=== PATIENT | male | born 1960 | race Caucasian/White ===

== ENCOUNTER 2021-08-03 18:42 | Inpatient (IN) | payer OTHER ==
[~2021-08-03] VITALS: Ht 177.8 cm; Wt 81.2 kg
--- NOTE | 2021-08-03 18:45 | NUR ---
CAME IN FOR MID CHEST TIGHTNESS/PAIN NON-RADIATING SINCE THIS MORNING. TO ER BED 4, HOOKED TO BUSINESS ENGLISH INSTRUCTOR, CHANGED TO HOSP GOWN, WARM BLANKLET PROVIDED, PATIENT AAO x 4, BREATHING EVEN AND UNLABORED. DR ARDON AT BEDSIDE
[2021-08-03 19:20] LABS: CALCIUM, SERUM 8.8 mg/dL (8.5-10.1); CARBON DIOXIDE 29 mmol/L (21-32); CHLORIDE 102 mmol/L (98-107); CREATININE 1.1 mg/dL (0.6-1.3); GLUCOSE 308 mg/dL (74-106); POTASSIUM 3.5 mmol/L (3.5-5.1); SODIUM SERUM 137 mmol/L (136-145); UREA NITROGEN, BLOOD 12 mg/dL (7-18)
--- NOTE | 2021-08-03 19:21 | NUR ---
REPORT GIVEN TO WILBUR BARROSO FOR MEGAN
[2021-08-03] MEDS ORDERED: METOPROLOL TARTRATE INJ 5 MG/5 ML AMPUL ONE (19:25)
[2021-08-03] MEDS ORDERED: ASPIRIN 81 MG TAB.CHEW ONE (19:26)
[2021-08-03] MEDS ORDERED: METOPROLOL TARTRATE INJ 5 MG/5 ML AMPUL IV ONE (19:30)
[2021-08-03] MEDS ORDERED: ASPIRIN 81 MG TAB.CHEW PO ONE (19:30)
--- NOTE | 2021-08-03 19:45 | NUR ---
COVID TEST SWABBED AND SENT TO LAB
[2021-08-03 19:59] LABS: BASOPHILS # (AUTO) 0.1 K/uL (0.0-0.2); BASOPHILS % (AUTO) 0.7 % (0.0-2.0); EOSINOPHILS % (AUTO) 1.6 % (0.0-6.0); HEMATOCRIT 53 % (39-51); HEMOGLOBIN 17.7 g/dL (13.5-17.5); LYMPHOCYTES # (AUTO) 2.3 K/uL (0.8-4.8); LYMPHOCYTES % (AUTO) 26.4 % (20.0-44.0); MEAN CORPUSCULAR HGB CONC 33 g/dl (31.0-36.0); MEAN CORPUSCULAR VOLUME 93 fL (80-96); MONOCYTES # (AUTO) 0.6 K/uL (0.1-1.30); MONOCYTES % (AUTO) 7.1 % (2.0-12.0); NEUTROPHILS # (AUTO) 5.6 K/uL (1.8-8.9); NEUTROPHILS % (AUTO) 64.2 % (43.0-81.0); PLATELET COUNT (AUTO) 294 K/uL (150-450); RED BLOOD CELL COUNT(AUTO) 5.74 MIL/uL (4.5-6.0); WHITE BLOOD COUNT (AUTO) 8.8 K/uL (4.3-11.0)
[2021-08-03] MEDS ORDERED: ENOXAPARIN SODIUM 80 MG/0.8 ML DISP.SYRIN SQ ONE ×2 (20:00→20:13)
--- NOTE | 2021-08-03 20:11 | NUR ---
[facility] PAGED PER DR ARDON
[2021-08-03] MEDS ORDERED: ONDANSETRON HCL/PF 4 MG/2 ML VIAL ONE (20:14)
[2021-08-03] MEDS ORDERED: MORPHINE SULFATE INJ 4 MG/ML DISP.SYRIN ONE (20:14)
[2021-08-03] MEDS ORDERED: DEXTROSE 50%-WATER 50 ML DISP.SYRIN IV PRN (20:30)
[2021-08-03] MEDS ORDERED: MORPHINE SULFATE INJ 2 MG/ML DISP.SYRIN IV ONE (20:30)
[2021-08-03] MEDS ORDERED: LABETALOL 20 MG/4 ML VIAL IV PRN (20:30)
[2021-08-03] MEDS ORDERED: ONDANSETRON HCL/PF 4 MG/2 ML VIAL IV ONE (20:30)
[2021-08-03] MEDS ORDERED: ONDANSETRON HCL/PF 4 MG/2 ML VIAL IVP PRN (20:30)
[2021-08-03 21:24] LABS: EOSINOPHILS % (MANUAL) 1 % (0-4); LYMPHOCYTES % (MANUAL) 30 % (16-48); MONOCYTES % (MANUAL) 4 % (0-11.0); NEUTROPHILS % (MANUAL) 65 (42-76)
[2021-08-03] MEDS: BLOOD SUGAR DIAGNOSTIC 1 EACH STRIP IN SCH (21:33)
[2021-08-03] MEDS ORDERED: INSULIN REGULAR, HUMAN 100 UNIT/ML 10 ML VIAL ONE (21:39)
[2021-08-03] MEDS: INSULIN REGULAR, HUMAN 100 UNIT/ML 3 ML VIAL SQ PRN (21:45)
[2021-08-03] MEDS ORDERED: ATORVASTATIN 10 MG TABLET ONE (22:50)
[2021-08-03] MEDS ORDERED: METOPROLOL TARTRATE 50 MG TABLET ONE (22:50)
[2021-08-03] MEDS: ATORVASTATIN 10 MG TABLET PO SCH (22:54)
[2021-08-04] MEDS ORDERED: MORPHINE SULFATE INJ 2 MG/ML DISP.SYRIN ONE ×2 (00:25→04:37)
[2021-08-04] MEDS: MORPHINE SULFATE INJ 2 MG/ML DISP.SYRIN IV PRN ×4 (00:29→16:59)
[2021-08-04] MEDS: METOPROLOL TARTRATE 50 MG TABLET PO SCH ×4 (06:00→17:18)
[2021-08-04 06:12] LABS: BASOPHILS # (AUTO) 0.1 K/uL (0.0-0.2); BASOPHILS % (AUTO) 0.8 % (0.0-2.0); EOSINOPHILS % (AUTO) 1.7 % (0.0-6.0); HEMATOCRIT 53 % (39-51); HEMOGLOBIN 17.9 g/dL (13.5-17.5); LYMPHOCYTES % (AUTO) 25.6 % (20.0-44.0); MEAN CORPUSCULAR HGB CONC 34 g/dl (31.0-36.0); MEAN CORPUSCULAR VOLUME 91 fL (80-96); MONOCYTES # (AUTO) 0.9 K/uL (0.1-1.30); MONOCYTES % (AUTO) 7.7 % (2.0-12.0); NEUTROPHILS # (AUTO) 7.6 K/uL (1.8-8.9); NEUTROPHILS % (AUTO) 64.2 % (43.0-81.0); PLATELET COUNT (AUTO) 287 K/uL (150-450); RED BLOOD CELL COUNT(AUTO) 5.83 MIL/uL (4.5-6.0); WHITE BLOOD COUNT (AUTO) 11.9 K/uL (4.3-11.0)
[2021-08-04 07:06] LABS: ALBUMIN 3.6 g/dL (3.4-5.0); BILIRUBIN,TOTAL 0.7 mg/dL (0.2-1.0); CALCIUM, SERUM 8.5 mg/dL (8.5-10.1); MAGNESIUM 1.8 mg/dL (1.8-2.4); PHOSPHORUS 4.6 mg/dL (2.5-4.9); TOTAL PROTEIN, SERUM 6.9 g/dL (6.4-8.2)
[2021-08-04 07:13] LABS: POTASSIUM 3.9 mmol/L (3.5-5.1)
[2021-08-04] MEDS: BLOOD SUGAR DIAGNOSTIC 1 EACH STRIP IN SCH ×4 (07:41→21:35)
--- NOTE | 2021-08-04 07:44 | NUR ---
PER RN HELPER METAL HANGING PT WILL BE GOING TO 314 BED 1
[2021-08-04] MEDS: INSULIN REGULAR, HUMAN 100 UNIT/ML 3 ML VIAL SQ PRN ×4 (07:45→21:38)
--- NOTE | 2021-08-04 08:10 | NUR ---
PATIENT TRANSFERRED UNDER ACLS.
--- NOTE | 2021-08-04 08:11 | NUR ---
CALLED FOR REPORT. WAS LEFT ON HOLD.
--- NOTE | 2021-08-04 08:28 | NUR ---
REPORT GTIVEN TO MIKI
--- NOTE | 2021-08-04 09:00 | NUR ---
RN ADMITTING NOTES ADMITTED THIS 61 Y/O MALE PATIENT FROM ER, TRANSPORTED VIA WHEELCHAIR BY ER NURSE. WITH ADMITTING DIAGNOSIS OF NSTEMI/CHEST PAIN. PATIENT IS ALERT, A/O X4, VERBALLY RESPONSIVE, NO SIGNS OF ACUTE DISTRESS NOTED. PATIENT NOTED WITH EPISODES OF AGITATION/ANXIETY, AMBULATING IN THE HALLWAY, BECAUSE HE WANTED HIS TO GO UPSTAIRS RIGHT AWAY ALTHOUGH VISITING HOURS HASN'T STARTED YET. REFUSED TO BE INTERVIEWED AT THIS TIME AND REFUSED VITAL SIGNS TO BE TAKEN. ASKED FOR PAIN MEDICATIONS, MORPHINE 2 MG GIVEN IVP @0848. CN SPOKE WITH PATIENT AND EXPLAINED HOSPITAL POLICIES AND PROCEDURES. PATIENT CALMED DOWN. WILL TRY TO INTERVIEW PATIENT LATER. WILL CONTINUE TO MONITOR PATIENT.
[2021-08-04] MEDS: ATORVASTATIN 10 MG TABLET PO SCH (09:42)
[2021-08-04] MEDS: ENOXAPARIN SODIUM 40 MG/0.4 ML DISP.SYRIN SQ SCH ×2 (09:46→21:00)
[2021-08-04 10:00] VITALS: BP 105/72
--- NOTE | 2021-08-04 10:30 | NUR ---
RN NOTES PATIENT MORE CALM NOW. ALREADY VISITED BY DR. DEL TORO AND ASKED FOR ANTI-ANXIETY MEDICATION. PATIENT ADMISSION DONE. REFUSED BODY CHECK. INSPITE EXPLANATION OF IMPORTANCE. AT BEDSIDE. TELEMONITOR PLACED WITH CURRENT READING SHOWING NSR HR @ 72. VITAL SIGNS TAKEN. SAFETY MEASURES IN PLACE, BED IN LOWEST LOCKED POSITION, SR UP, CALL LIGHT PLACED WITHIN EASY REACH.
[2021-08-04] MEDS: LORAZEPAM 1 MG TABLET PO PRN (11:41)
[2021-08-04 16:00] VITALS: BP 102/64
--- NOTE | 2021-08-04 18:56 | NUR ---
M48 M60 ARMOR CREWMAN CLOSING NOTES PATIENT RESTING IN BED WITH . NO SIGNS OF ACUTE DISTRESS. ON ROOM AIR TOLERATING WELL. NO SIGNS OF ACUTE DISTRESS NOTED.MEDICATED FOR PAIN NEEDED. IV ACCESS ON LEFT ANTECUBITAL INTACT AND PATENT. SAFETY MEASURES MAINTAINED. WILL ENDORSE TO NEXT SHIFT.
--- NOTE | 2021-08-04 19:45 | NUR ---
SENIOR CONSTRUCTION PROJECT MANAGER OPENING NOTES PATIENT RESTING IN BED WITH . NO SIGNS OF ACUTE DISTRESS. ON ROOM AIR TOLERATING WELL. NO SIGNS OF ACUTE DISTRESS NOTED.MEDICATED FOR PAIN NEEDED. IV ACCESS ON LEFT ANTECUBITAL INTACT AND PATENT. SAFETY MEASURES MAINTAINED. WILL CONTINUE TO MONITOR.
[2021-08-04 20:00] VITALS: BP 98/60
--- NOTE | 2021-08-04 21:03 | NUR ---
APPLICATIONS ENGINEER MANUFACTURING NOTES HOLD LOVENOX DOSE PT TO HAVE SURGERY IN THE MORNING.
--- NOTE | 2021-08-05 02:30 | NUR ---
RIB STIFFENER AND HEEL DIPPER NOTES PT KEEPS TAKING OFF LEAD RISK AND BENEFITS EXPLAINED X3 PT STATED HE UNDERSTOOD BUT TOOK OFF LEADS OVER AND OVER AGAIN X3 IN THE LAST HOUR. WILL CONTINUE TO MONITOR.
[2021-08-05 04:00] VITALS: BP 105/76
[2021-08-05] MEDS: MORPHINE SULFATE INJ 2 MG/ML DISP.SYRIN IV PRN ×5 (04:00→21:45)
--- NOTE | 2021-08-05 04:03 | NUR ---
J2EE PROGRAMMER NOTES PRN MORPHINE GIVEN FOR PAIN AND TOLERATED WELL. WILL CONTINUE TO MONITOR.
[2021-08-05 04:09] VITALS: BP 105/76
--- NOTE | 2021-08-05 04:35 | NUR ---
BAND SAW OPERATOR NOTES PT CONTINUES TO TAKE OFF SOFIE MULTIPLE TIMES X4 IN THE PAST HOUR. RISK AND BENEFITS EXPLAINED X3 PT STATES HE UNDERSTANDS HOWEVER TAKES THEM OFF OVER AND OVER AGAIN. WILL CONTINUE TO MONITOR.
[2021-08-05] MEDS: METOPROLOL TARTRATE 50 MG TABLET PO SCH ×4 (06:00→17:45)
[2021-08-05] MEDS: INSULIN REGULAR, HUMAN 100 UNIT/ML 3 ML VIAL SQ PRN ×4 (06:34→21:54)
[2021-08-05] MEDS: BLOOD SUGAR DIAGNOSTIC 1 EACH STRIP IN SCH ×4 (06:34→21:54)
--- NOTE | 2021-08-05 06:41 | NUR ---
VACCINE SPECIALIST CLOSING NOTES PATIENT RESTING IN BED WITH . NO SIGNS OF ACUTE DISTRESS. ON ROOM AIR TOLERATING WELL. NO SIGNS OF ACUTE DISTRESS NOTED.MEDICATED FOR PAIN NEEDED. IV ACCESS ON LEFT ANTECUBITAL INTACT AND PATENT. SAFETY MEASURES MAINTAINED. WILL ENDORSE CARE TO DAY SHIFT NURSE.
[2021-08-05 07:39] LABS: BASOPHILS # (AUTO) 0.1 K/uL (0.0-0.2); BASOPHILS % (AUTO) 1.1 % (0.0-2.0); EOSINOPHILS % (AUTO) 1.6 % (0.0-6.0); HEMATOCRIT 50 % (39-51); HEMOGLOBIN 16.7 g/dL (13.5-17.5); LYMPHOCYTES # (AUTO) 3.1 K/uL (0.8-4.8); LYMPHOCYTES % (AUTO) 33.4 % (20.0-44.0); MEAN CORPUSCULAR HGB CONC 34 g/dl (31.0-36.0); MEAN CORPUSCULAR VOLUME 91 fL (80-96); MONOCYTES # (AUTO) 0.7 K/uL (0.1-1.30); MONOCYTES % (AUTO) 8.1 % (2.0-12.0); NEUTROPHILS # (AUTO) 5.1 K/uL (1.8-8.9); NEUTROPHILS % (AUTO) 55.8 % (43.0-81.0); PLATELET COUNT (AUTO) 246 K/uL (150-450); RED BLOOD CELL COUNT(AUTO) 5.43 MIL/uL (4.5-6.0); WHITE BLOOD COUNT (AUTO) 9.2 K/uL (4.3-11.0)
--- NOTE | 2021-08-05 07:43 | NUR ---
WHARF TENDER HEAD OPENING NOTES PT RESTING ON BED WITH AT HIS SIDE. NO SIGNS OF ACUTE DISTRESS. ON ROOM AIR TOLERATING WELL. NO SIGNS OF ACUTE DISTRESS NOTED. C/O PAIN- MEDICATED FOR PAIN NEEDED. AWAITING CATH AT 4 PM IV ACCESS ON LEFT ANTECUBITAL #20 G INTACT AND PATENT. SAFETY MEASURES MAINTAINED. WILL CONTINUE TO MONITOR/ ASSIST
[2021-08-05 07:56] VITALS: BP 123/80
[2021-08-05 08:03] LABS: ALANINE AMINOTRANSFERASE 38 U/L (12-78); ALBUMIN 3.3 g/dL (3.4-5.0); ALKALINE PHOSPHATASE 68 U/L (46-116); ASPARTATE AMINOTRANSFERASE 87 U/L (15-37); BILIRUBIN,TOTAL 0.8 mg/dL (0.2-1.0); CALCIUM, SERUM 8.7 mg/dL (8.5-10.1); CARBON DIOXIDE 27 mmol/L (21-32); CHLORIDE 105 mmol/L (98-107); GLUCOSE 210 mg/dL (74-106); MAGNESIUM 1.8 mg/dL (1.8-2.4); PHOSPHORUS 3.9 mg/dL (2.5-4.9); POTASSIUM 4.2 mmol/L (3.5-5.1); SODIUM SERUM 138 mmol/L (136-145); TOTAL PROTEIN, SERUM 6.7 g/dL (6.4-8.2); UREA NITROGEN, BLOOD 17 mg/dL (7-18)
[2021-08-05] MEDS: ATORVASTATIN 10 MG TABLET PO SCH (08:47)
[2021-08-05] MEDS: ENOXAPARIN SODIUM 40 MG/0.4 ML DISP.SYRIN SQ SCH ×2 (08:48→21:24)
--- NOTE | 2021-08-05 09:15 | NUR ---
RN NOTE- TROP - > 25,000 DR GIBBS NOTIFIED / AWARE
[2021-08-05] MEDS: ACETAMINOPHEN 325 MG TABLET PO PRN (09:30)
--- NOTE | 2021-08-05 09:31 | NUR ---
RN NOTE- C/O HEADACHE/ TYLENOL 650MG GIVEN W SIP WATER. NPO STATUS
[2021-08-05 12:16] VITALS: BP 131/63
--- NOTE | 2021-08-05 15:30 | NUR ---
RN NOTE-PT TO SENIOR ABAP DEVELOPER FOR PROCEDURE
[2021-08-05] MEDS ORDERED: IV NS 0.9% 1,000 ML ONE (15:44)
[2021-08-05] MEDS ORDERED: IODIXANOL 150 ML IV ONE (15:44)
[2021-08-05] MEDS ORDERED: IV SET PRIMARY PUMP SET 1 EA INFUS.SET MC ONE (15:44)
[2021-08-05] MEDS ORDERED: LIDOCAINE HCL/PF 1% 30 ML SDV ONE (15:45)
[2021-08-05] MEDS ORDERED: NITROGLYCERIN IN 5 % DEXTROSE 250 ML IV ONE (16:19)
[2021-08-05] MEDS ORDERED: FENTANYL PF 100MCG/2ML AMPUL ONE (16:20)
[2021-08-05] MEDS ORDERED: MIDAZOLAM HCL 2 MG/2ML VIAL ONE (16:20)
[2021-08-05 16:41] VITALS: BP 118/54
--- NOTE | 2021-08-05 17:00 | NUR ---
RN NOTE- PT BACK FROM MANAGER ORGANIZATIONAL. ORDERS GIVEN AND COMPLIED WITH. PT STABLE VS , [id number]
--- NOTE | 2021-08-05 18:00 | NUR ---
RN NOTE- TR BAND - 3ML AIR REMOVED. NO SIGNS OF BLEEDING. BP- 136/72, HR- 80
--- NOTE | 2021-08-05 18:15 | NUR ---
RN NOTE- 3 ML AIR REMOVED FROM TR BAND. NO BLEEDING PRESENT
--- NOTE | 2021-08-05 18:30 | NUR ---
RN NOTE- 3ML AIR REMOVED FROM TR BAND. NO BLEEDING NOTED
--- NOTE | 2021-08-05 18:45 | NUR ---
RN NOTE- 3 ML AIR REMOVED FROM TR BAND.NO BLEEDING NOTED
--- NOTE | 2021-08-05 19:00 | NUR ---
RN NOTE- 3ML AIR REMOVED. NO BLEEDING NOTED. TR BAND REMOVED. SITE COVERED W DRESSING
--- NOTE | 2021-08-05 19:50 | NUR ---
BIOINFORMATICS DEVELOPER OPENING NOTE PATIENT AWAKE IN BED, ALERT/ORIENTED X 4, PT ABLE TO MAKE NEEDS KNOWN. PT STABLE ON RA, NO S/S OF DISTRESS OR SOB NOTED, BREATHING EVEN AND UNLABORED. PT DENIES CHEST PAIN AT THIS TIME. IV ACCESS ON LEFT AC #18G INTACT AND FLUSHING WELL, SALINE LOCKED. PATIENT REFUSING PLACEMENT OF TELE MONITOR DESPITE EXPLANATION OF RISKS AND BENEFITS, CONTINUES TO REMOVE LEADS. SAFETY MEASURES IN PLACE: CALL LIGHT WITHIN REACH, SIDE RAILS UP X 2, BED LOCKED IN LOW POSITION. WILL CONTINUE TO MONITOR PATIENT
[2021-08-05 20:00] VITALS: BP 120/81
[2021-08-05] MEDS: LORAZEPAM 1 MG TABLET PO PRN (20:34)
--- NOTE | 2021-08-05 20:36 | NUR ---
RN NOTE PATIENT FEELING ANXIOUS, REQUESTED ATIVAN, MEDICATION GIVEN ORDERED, WILL CONTINUE TO MONITOR PATIENT
--- NOTE | 2021-08-05 22:10 | NUR ---
RN NOTE ASKED PATIENT IF WE CAN PLACE HEART MONITOR ON HIM, EXPLAINED RISKS AND BENEFITS, PT STILL ADAMANT ABOUT REFUSING HEART MONITOR
[2021-08-06] VITALS: BP 132/87
[2021-08-06 00:24] VITALS: BP 132/87
[2021-08-06] MEDS: METOPROLOL TARTRATE 50 MG TABLET PO SCH ×3 (00:24→12:00)
[2021-08-06] MEDS: MAGNESIUM HYDROXIDE 30 ML UDC PO PRN ×2 (01:33→09:18)
[2021-08-06] MEDS: ACETAMINOPHEN 325 MG TABLET PO PRN (01:34)
--- NOTE | 2021-08-06 01:37 | NUR ---
RN NOTE PATIENT COMPLAINING OF CONSTIPATION AND ABDOMINAL PAIN, MILK OF MAGNESIA AND TYLENOL 650 MG PO GIVEN ORDERED. WILL CONTINUE TO MONITOR PATIENT
[2021-08-06] MEDS: MORPHINE SULFATE INJ 2 MG/ML DISP.SYRIN IV PRN ×2 (01:46→09:06)
--- NOTE | 2021-08-06 01:50 | NUR ---
RN NOTE PATIENT INSISTING THAT HE HAS 8/10 ABDOMINAL, LEFT SHOULDER, GENERALIZED PAIN AND THAT "TYLENOL WON'T HELP". PT FACIAL GRIMACING, ANXIOUS, RESTLESS. PRN MORPHINE 2 MG IV Q4H GIVEN ORDERED, WILL CONTINUE TO MONITOR PATIENT
--- NOTE | 2021-08-06 06:21 | NUR ---
RN NOTE PATIENT REFUSED VITAL SIGNS, UNABLE TO GIVE LOPRESSOR D/T UNKNOWN BLOOD PRESSURE. WILL CONTINUE TO MONITOR PATIENT
[2021-08-06] MEDS: BLOOD SUGAR DIAGNOSTIC 1 EACH STRIP IN SCH ×2 (07:30→12:47)
--- NOTE | 2021-08-06 07:30 | NUR ---
MEMORY CARE PROGRAM DIRECTOR OPENING NOTES PATIENT AWAKE IN BED, ALERT/ORIENTED X 3, UPPER SORBIAN SPEAKER. EATING BREAKFAST . PT ABLE TO MAKE NEEDS KNOWN. STABLE ON RA, NO S/S OF DISTRESS OR SOB NOTED, BREATHING EVEN AND UNLABORED. LEFT AC G18 IV ACCESS INTACT AND SALINE LOCKED. PATIENT REFUSED TO HAVE ENVIRONMENTAL AID ON. SAFETY MEASURES IN PLACE: CALL LIGHT AND TABLE WITHIN REACH, SIDE RAILS UP X 2, BED LOCKED IN LOW POSITION. WILL CONTINUE TO MONITOR.
[2021-08-06] MEDS: INSULIN REGULAR, HUMAN 100 UNIT/ML 3 ML VIAL SQ PRN ×2 (07:32→12:55)
--- NOTE | 2021-08-06 07:58 | NUR ---
SUPERVISOR TRUST ACCOUNTS CLOSING NOTE PATIENT AWAKE IN BED, ALERT/ORIENTED X 3, PT ABLE TO MAKE NEEDS KNOWN. PT STABLE ON RA, NO S/S OF DISTRESS OR SOB NOTED, BREATHING EVEN AND UNLABORED. MEDICATIONS GIVEN ORDERED, PT NEEDS MET THROUGHOUT SHIFT. LEFT AC IV ACCESS INTACT AND SALINE LOCKED. PATIENT STILL REFUSING TO HAVE PLUMBER MAINTENANCE PLACED. SAFETY MEASURES IN PLACE: CALL LIGHT WITHIN REACH, SIDE RAILS UP X 2, BED LOCKED IN LOW POSITION. ENDORSED TO DAY SHIFT NURSE FOR CONTINUITY OF CARE
[2021-08-06] MEDS: ATORVASTATIN 10 MG TABLET PO SCH (08:35)
[2021-08-06] MEDS: ENOXAPARIN SODIUM 40 MG/0.4 ML DISP.SYRIN SQ SCH (08:36)
[2021-08-06] MEDS ORDERED: ASPIRIN 81 MG TAB.CHEW PO SCH (09:00)
[2021-08-06] MEDS ORDERED: LORA-259 PO (12:22)
--- NOTE | 2021-08-06 13:33 | NUR ---
WOOD LATHER NOTES DISCHARGE PATIENT IN STABLE CONDITION. PATIENT ALERT AND ORIENTED TIMES 3. NO PAIN NOTED. NO RESPIRATORY DISTRESS NOTED. ALL DISCHARGE INSTRUCTIONS GIVEN TO THE PATIENT. PATIENT VERBALIZED UNDERSTANDING. BELONGING PAPER COULDN'T FIND IN CHART. CHARTED THE BELONGINGS PATIENT HAD UPON DISCHARGE. PATIENT SIGNED THE BELONGINGS AND DISCHARGE PAPERS. REMIND PATIENT TO GO TO ER OR TO THE CLOSEST URGENT CARE IN CASE OF EMERGENCY. IV SITE REMOVED. COVERED WITH DRY DRESSING . NO BLEEDING NOTED. REMOVED NAME BAND. WAGNER WHEELED THE PATIENT TO THE LOBBY AT 1257 PM. KARLA TENTER FRAME OPERATOR AND CHARGE NURSE AWARE OF THE DISCHARGE.
== END 2021-08-06 13:49 | disposition home or self-care (01) | DRG 190 ==
LOC: ER 18:43 → TRANSITION 20:42 → TELE 08-04 08:01
PROVIDERS: ADMIT Internal Medicine; ATTEND Nurse Practitioner Acute Care
PROC: 4A023N7 Measurement of Cardiac Sampling and Pressure, Left Heart, Percutaneous Approach (ICD-10-PCS; principal; 2021-08-05)
PROC: B211YZZ Fluoroscopy of Multiple Coronary Arteries using Other Contrast (ICD-10-PCS; 2021-08-05)
DX: I21.4 Non-ST elevation (NSTEMI) myocardial infarction (principal); E11.9 Type 2 diabetes mellitus without complications; E78.5 Hyperlipidemia, unspecified; I25.10 Atherosclerotic heart disease of native coronary artery without angina pectoris; I10 Essential (primary) hypertension; Z95.5 Presence of coronary angioplasty implant and graft; I25.2 Old myocardial infarction; Z91.19 Patient's noncompliance with other medical treatment and regimen; Z79.82 Long term (current) use of aspirin; Z79.899 Other long term (current) drug therapy; Z79.01 Long term (current) use of anticoagulants; Z79.84 Long term (current) use of oral hypoglycemic drugs; F17.200 Nicotine dependence, unspecified, uncomplicated
CPT/HCPCS: 36415; 71045-TC; 80048-TC; 80053-TC; 82962-TC; 83605-TC; 83735-TC; 84100-TC; 84484-TC; 85025-TC; 85610-TC; 85730-TC; 93307-TC; 93452; C9803; G0378; G0500; J1644; J1650; J1815; J2250; J2270; J2405; J3010; J3490; J7030; Q9967